=== PATIENT | male | born 1940 | race Caucasian/White ===

== ENCOUNTER 2017-02-11 09:58 | Day surgery (SDC) | payer MEDICARE, BC ==
[~2017-02-11] VITALS: Ht 175.3 cm; Wt 81.5 kg
[~2017-02-11 09:58] MED LIST: ALLO300T PO; APIX5TAB PO; ATOR40TA PO; CLON0.1T PO; GLIP10TA13 PO; HYDR-3237 PO; HYDR-3343 PO
[2017-02-11] MEDS ORDERED: SODIUM CHLORIDE 0.9% 1,000 ML IV SCH (10:22)
[2017-02-11 10:43] VITALS: BP 147/47
[2017-02-11] MEDS ORDERED: ASCO500C2 PO (11:02)
[2017-02-11] MEDS ORDERED: [UNRECOGNIZED DRUG - CODE] PO (11:02)
[2017-02-11] MEDS ORDERED: IRON1TAB60 PO (11:02)
[2017-02-11] MEDS ORDERED: CHOL100011 PO (11:02)
[2017-02-11] MEDS ORDERED: SEVE800T8 PO (11:02)
[2017-02-11] MEDS ORDERED: WARF4TAB7 PO (11:02)
[2017-02-11] MEDS ORDERED: ACET-1600 PO (11:02)
[2017-02-11] MEDS ORDERED: CARV6.252 PO (11:02)
[2017-02-11 11:07] LABS: HEMOGLOBIN 11.6 g/dL (13.7-18.0); WHITE BLOOD COUNT 5.8 x10^3/uL (3.4-10)
[2017-02-11 11:21] LABS: BLOOD UREA NITROGEN 73 mg/dL (7-18)
[2017-02-11] MEDS ORDERED: NITROGLYCERIN 5 MG/ML, 10ML ONE ×2 (12:16→13:04)
[2017-02-11] MEDS ORDERED: LIDOCAINE 2%, 20ML ONE ×2 (12:16→13:04)
[2017-02-11] MEDS ORDERED: MIDAZOLAM 1 MG/ML, 5ML ONE ×2 (12:16→13:03)
[2017-02-11] MEDS ORDERED: VERAPAMIL 2.5 MG/ML, 2ML ONE ×2 (12:16→13:04)
[2017-02-11] MEDS ORDERED: FENTANYL PF 100 MCG/2ML ONE ×3 (12:16→13:29)
[2017-02-11] MEDS ORDERED: HEPARIN 1,000 UNITS/ML, 10ML ONE ×2 (12:17→13:04)
[2017-02-11] MEDS ORDERED: DIPHENHYDRAMINE 50 MG/ML, 1ML ONE (13:29)
== END 2017-02-11 16:36 ==
LOC: CACL 09:58
PROVIDERS: ATTEND Internal Medicine Cardiovascular Disease
DX: I27.0 Primary pulmonary hypertension (principal); E78.5 Hyperlipidemia, unspecified; M10.9 Gout, unspecified; E11.22 Type 2 diabetes mellitus with diabetic chronic kidney disease; I12.0 Hypertensive chronic kidney disease with stage 5 chronic kidney disease or end stage renal disease; N18.6 End stage renal disease; E87.5 Hyperkalemia; Z87.01 Personal history of pneumonia (recurrent); Z88.8 Allergy status to other drugs, medicaments and biological substances
CPT/HCPCS: 36415; 80048; 85025; 85610; 93460; 99156; 99157; C1769; C1894; J2250; J3010; J3490; Q9967; J1644; J1200